=== PATIENT | male | born 1980 | race Caucasian/White ===

== ENCOUNTER 2020-03-24 22:14 | Emergency (ER) | payer MEDICAID ==
[~2020-03-24] VITALS: Ht 172.7 cm; Wt 96.0 kg
[~2020-03-24 22:14] MED LIST: QUET25TA PO; QUET50TA PO
[2020-03-24 22:28] VITALS: BP 158/84
[2020-03-25] MEDS ORDERED: CHLORDIAZEPOXIDE 25MG CAPSULE PO ONE
== END 2020-03-25 02:50 | disposition home or self-care (01) ==
LOC: ER 22:14
DX: T51.0X1A Toxic effect of ethanol, accidental (unintentional), initial encounter (principal); T43.621A Poisoning by amphetamines, accidental (unintentional), initial encounter; R07.89 Other chest pain; F15.180 Other stimulant abuse with stimulant-induced anxiety disorder; R00.0 Tachycardia, unspecified; F10.20 Alcohol dependence, uncomplicated; Y90.9 Presence of alcohol in blood, level not specified; Y92.89 Other specified places as the place of occurrence of the external cause
CPT/HCPCS: 93005; 99283

== ENCOUNTER 2020-03-25 07:23 | Emergency (ER) | payer MEDICAID, OTHER ==
[~2020-03-25] VITALS: Ht 165.1 cm; Wt 80.0 kg
[2020-03-25 08:30] VITALS: BP 138/86
[2020-03-25] MEDS ORDERED: ACETAMINOPHEN 325MG TABLET PO ONE (09:45)
== END 2020-03-25 11:30 | disposition left against medical advice (07) ==
LOC: ER 07:23
DX: R21 Rash and other nonspecific skin eruption (principal); N50.89 Other specified disorders of the male genital organs; R00.0 Tachycardia, unspecified; I10 Essential (primary) hypertension; E11.9 Type 2 diabetes mellitus without complications
CPT/HCPCS: 93005; 99283